=== PATIENT | female | born 1950 | race Caucasian/White ===

== ENCOUNTER 2018-06-24 07:37 | Outpatient (CLI) | payer MEDICARE, OTHER ==
[2018-06-24 17:34] LABS: #Basophils 0.1 thou/uL (0.0-0.2); #Eosinphils 0.3 thou/uL (0.0-0.7); #Lymphocytes 3.5 thou/uL (1.20-3.40); #Monocytes 0.5 thou/uL (0.11-0.59); #Neutrophils 3.7 thou/uL (1.40-6.50); %Basophils 1.5 % (0.0-1.0); %Eosinophils 3.6 % (0.0-10.0); %Lymphocytes 42.9 % (21.0-51.0); Hemoglobin 13.1 g/dL (12.0-16.0); Mean Corpuscular HGB CONC 33.9 g/dL (32.0-36.0); Mean Corpuscular Hemoglobin 30.1 pg (27.0-31.0); Mean Corpuscular Volume 88.8 fL (78.0-98.0); Mean Platelet Volume 7.2 fL (7.4-10.4); Platelet Count 322 thou/uL (130-400); RBC Distribution Width 12.5 % (11.5-14.5); Red Blood Cell (RBC) Count 4.34 mill/uL (4.20-5.40)
[2018-06-24 17:56] LABS: Anion Gap 11 mmol/L (10-20); BUN (Urea Nitrogen) 20 mg/dL (9.8-20.1); Calc. Creatinine Clearance 0 mL/min (70-130); Calcium 9.4 mg/dL (7.8-10.44); Carbon Dioxide 26 mmol/L (23-31); Chloride 107 mmol/L (98-107); Estimated GFR-MDRD 53; Glucose 88 mg/dL (80-115); Potassium 4.5 mmol/L (3.5-5.1); Sodium 139 mmol/L (136-145)
--- NOTE | 2018-06-26 20:52 | EKG ---
Test Reason : Blood Pressure : / mmHG Vent. Rate : 071 BPM Atrial Rate : 071 BPM P-R Int : 148 ms QRS Dur : 094 ms QT Int : 422 ms P-R-T Axes : 066 038 044 degrees QTc Int : 458 ms Sinus rhythm with occasional Premature ventricular complexes Incomplete right bundle branch block Anteroseptal infarct (cited on or before 08-JUL-2016) Abnormal ECG When compared with ECG of 08-JUL-2016 08:56, Premature ventricular complexes are now Present Questionable change in initial forces of Anteroseptal leads Confirmed by Radha JIMNEEZ ([id number]) on 06/26/2018 8:51:39 PM Referred By: CLEVE Confirmed By:Radha JIMENEZ
== END 2018-06-24 07:38 | disposition home or self-care (01) ==
LOC: LABBT 07:37
PROVIDERS: ATTEND Surgery
DX: Z01.818 Encounter for other preprocedural examination (principal); K43.9 Ventral hernia without obstruction or gangrene
CPT/HCPCS: 80048; 85025; 93005; 93010

== ENCOUNTER 2018-07-09 05:47 | Day surgery (SDC) | payer MEDICARE, OTHER ==
[2018-07-09] MEDS ORDERED: CEFAZOLIN 2 GM/50 ML BAG ONE (05:59)
[2018-07-09] MEDS ORDERED: Bupivacaine HCl 0.25%/Epi 0.0005/PF 10 ML VIAL FS ONE (06:39)
[2018-07-09] MEDS ORDERED: Fentanyl 250 MCG/5 ML VIAL ONE (06:53)
[2018-07-09] MEDS ORDERED: Fentanyl 100 MCG/2 ML VIAL ONE (08:54)
[2018-07-09] MEDS ORDERED: Ketorolac Tromethamine 30 MG/ML VIAL ONE (09:08)
--- NOTE | 2018-07-09 09:47 | OP ---
DATE OF PROCEDURE: 07/09/2018 PREOPERATIVE DIAGNOSIS: Ventral hernia. POSTOPERATIVE DIAGNOSIS: Ventral hernia. PROCEDURE PERFORMED: Laparoscopic robotic ventral hernia repair with mesh, [address] ANESTHESIA: General. ESTIMATED BLOOD LOSS: Minimal. COMPLICATIONS: None. SPECIMEN: None. DESCRIPTION OF PROCEDURE: The patient was taken to the operating room and laid supine on the operating room table. After general anesthetic was obtained, a Dawson was placed. The abdomen was shaved, prepped, and draped in a sterile fashion. Left subcostal 5 mm Optiview trocar was placed in usual fashion without injury and high-flow pneumoperitoneum was obtained. Left and right upper abdominal 8 mm robotic assist ports were placed. The 5 mm port switched out to 11 mm balloon port. All ports were docked to the robot. Surgeon goes to the console. The adhesions were taken down from the posterior abdominal wall. The omental fat was reduced. The peritoneum was taken down exposing the posterior fascia. [address] mesh was cut, marked, and placed in the abdomen as was a 2-0 V-Loc and an 0 V-Loc. 0 V-Loc was used to close the fascial defect. There was a second small defect just beside that. An 8 cm mesh was then held up against the posterior fascia using the needle from the 0 V-Loc. The nonadherent area was placed down against the abdominal viscera. The exposed mesh site was placed up against the fascia. 2-0 V-Loc was used to sew the mesh circumferentially along the edge to the posterior fascia. All needles were removed from the abdomen. All port sites were infiltrated using local anesthetic. All ports were removed under direct visualization without bleeding. There was no injury to any intraabdominal structures. All port sites were closed using 4-0 Monocryl and Dermabond. The patient was sent to Recovery in stable condition. All instrument counts, needle counts, and lap counts are correct. Job ID: [id number]
[2018-07-09] MEDS ORDERED: HYDROcodone/Acetaminophen 5/325 mg Tablet ONE (11:08)
[2018-07-09] MEDS ORDERED: PROPOFOL 200 MG/20 ML VIAL ONE (15:50)
[2018-07-09] MEDS ORDERED: Glycopyrrolate 0.2 MG/ML 5 ML SYRINGE ONE (15:50)
[2018-07-09] MEDS ORDERED: PHENYLEPHRINE-NS 100 MCG/ML 10 ML SYRINGE ONE (15:50)
[2018-07-09] MEDS ORDERED: Succinylcholine Chloride 20 MG/ML 10 ml SYRINGE FS ONE (15:50)
[2018-07-09] MEDS ORDERED: Rocuronium Bromide 10 MG/ML (10ML VIAL) ONE (15:50)
[2018-07-09] MEDS ORDERED: Lidocaine 1% PF 5 ML VIAL ONE (15:50)
[2018-07-09] MEDS ORDERED: ePHEDrine 50 MG/ML VIAL ONE (15:50)
== END 2018-07-09 11:50 | disposition home or self-care (01) ==
LOC: SDC 05:47
PROVIDERS: ATTEND Surgery
PROC: 0WUF4JZ Supplement Abdominal Wall with Synthetic Substitute, Percutaneous Endoscopic Approach (ICD-10-PCS; principal; 2018-07-09)
DX: K43.9 Ventral hernia without obstruction or gangrene (principal); I10 Essential (primary) hypertension; Z79.1 Long term (current) use of non-steroidal anti-inflammatories (NSAID); Z79.899 Other long term (current) drug therapy
CPT/HCPCS: 49652; C1781; J0131; J1885; J3010

== ENCOUNTER 2022-04-17 12:11 | Outpatient (CLI) | payer MEDICARE, OTHER | END 2022-04-17 12:12 | disposition home or self-care (01) | LOC: RAD 12:11 | PROVIDERS: ATTEND Surgery | DX: K21.9 Gastro-esophageal reflux disease without esophagitis (principal); K22.89 Other specified disease of esophagus | CPT/HCPCS: 74220 ==

== ENCOUNTER 2022-06-19 07:39 | Inpatient (IN) | payer MEDICARE, OTHER ==
[2022-06-24 13:44] VITALS: BMI 35.0
[2022-06-25] MEDS ORDERED: fentaNYL PF 100 MCG/2 ML SYRINGE ONE (06:20)
[2022-06-25] MEDS ORDERED: Ketamine 50 MG/ML (10ML VIAL) ONE (06:20)
[2022-06-25] MEDS ORDERED: SUGAMMADEX SODIUM 200 MG/2 ML VIAL ONE (06:21)
[2022-06-25] MEDS ORDERED: Dexmedetomidine 200 MCG/2 ML VIAL ONE (06:21)
[2022-06-25 07:20] LABS: SARS-CoV-2 NAA Rapid Test Not Detected (NotDetected)
[2022-06-25] MEDS ORDERED: PROPOFOL 200 MG/20 ML VIAL ONE (07:45)
[2022-06-25] MEDS ORDERED: Ondansetron PF 4 MG/2 ML Vial ONE (07:45)
[2022-06-25] MEDS ORDERED: Lidocaine 1% PF 5 ML VIAL ONE (07:45)
[2022-06-25] MEDS ORDERED: CEFAZOLIN 2 GM VIAL ONE (07:45)
[2022-06-25] MEDS ORDERED: Dexamethasone 20 MG/5 ML VIAL ONE (07:45)
[2022-06-25] MEDS ORDERED: Rocuronium Bromide 10 MG/ML (10ML VIAL) ONE (07:45)
[2022-06-25] MEDS ORDERED: Glycopyrrolate 0.2 MG/ML 5 ML SYRINGE ONE (07:45)
[2022-06-25] MEDS ORDERED: NEOSTIGMINE 3 MG/3 ML SYR 3 MG/3 ML SYRINGE ONE (07:45)
[2022-06-25] MEDS ORDERED: Sodium Chloride 0.9% 100 ML ONE (07:45)
[2022-06-25] MEDS ORDERED: Bupivacaine/Epinephrine 0.25% 30 ML VIAL ONE (08:08)
[2022-06-25] MEDS ORDERED: FENTANYL 500 MCG/10 ML VIAL 2,000 MCG in Sodium Chloride 0.9% 60 ML IV PRN (10:26)
[2022-06-25] MEDS ORDERED: Naloxone HCl 0.4 mg/ml Vial IV PRN (10:26)
[2022-06-25] MEDS ORDERED: diphenhydrAMINE 50 MG/ML VIAL IM PRN (10:26)
[2022-06-25] MEDS ORDERED: Promethazine HCl 25 MG/ML VIAL IM PRN ×3 (10:26→11:18)
[2022-06-25] MEDS ORDERED: diphenhydrAMINE 50 MG/ML VIAL IVP PRN ×2 (10:26→11:18)
[2022-06-25] MEDS ORDERED: Ondansetron HCl/PF 4 MG/2 ML Vial IVP PRN (10:26)
[2022-06-25] MEDS ORDERED: Ondansetron PF 4 MG/2 ML Vial IVP PRN ×2 (10:26→11:18)
[2022-06-25] MEDS ORDERED: diphenhydrAMINE 25 MG CAP PO PRN (10:26)
[2022-06-25] MEDS ORDERED: Communication Order-Pharmacy FS SCH (10:30)
[2022-06-25] MEDS ORDERED: Hydrocodone-Acetamin 15 ML UDCUP PO PRN (11:18)
[2022-06-25] MEDS ORDERED: Ipratropium/Albuterol 3 ML NEB NEB PRN (11:18)
[2022-06-25] MEDS ORDERED: Dextrose 50% Abboject 50 ML SYRINGE SLOW IVP PRN (11:18)
[2022-06-25] MEDS ORDERED: hydrALAZINE 20 MG/ML VIAL SLOW IVP PRN (11:18)
[2022-06-25] MEDS ORDERED: Dextrose 5% in Water 1,000 ML IV PRN (11:18)
[2022-06-25] MEDS ORDERED: Fentanyl 100 MCG/2 ML VIAL ONE (11:27)
[2022-06-25] MEDS ORDERED: D5 1/2 NS w/20 mEq KCL 1,000 ML ONE (12:01)
[2022-06-25] MEDS: D5 1/2 NS w/20 mEq KCL 1,000 ML IV SCH ×2 (12:30→21:39)
[2022-06-25] MEDS ORDERED: Ketorolac Tromethamine 30 MG/ML VIAL IVP SCH (18:15)
[2022-06-25] MEDS: Acetaminophen 650 MG/20.3 ML UDCUP PO PRN (21:48)
[2022-06-25] MEDS: Senokot S 8.6-50 MG TAB PO SCH (21:49)
[2022-06-26] MEDS: Acetaminophen 650 MG/20.3 ML UDCUP PO PRN (05:25)
[2022-06-26] MEDS: D5 1/2 NS w/20 mEq KCL 1,000 ML IV SCH ×2 (06:25→16:23)
[2022-06-26 07:47] LABS: #Eosinphils 0.1 thou/uL (0.0-0.7); #Lymphocytes 2.3 thou/uL (1.20-3.40); #Monocytes 0.7 thou/uL (0.11-0.59); #Neutrophils 6.8 thou/uL (1.40-6.50); %Basophils 0.3 % (0.0-1.0); %Eosinophils 1.2 % (0.0-10.0); %Lymphocytes 23.2 % (21.0-51.0); %Monocytes 6.8 % (0.0-10.0); %Neutrophils 68.6 % (42.0-75.0); Hemoglobin 11.7 g/dL (12.0-16.0); Mean Corpuscular HGB CONC 33.1 g/dL (32.0-36.0); Mean Corpuscular Volume 93.6 fl (78.0-98.0); Mean Platelet Volume 7.3 fL (7.4-10.4); Platelet Count 221 10x3/uL (130-400); Red Blood Cell (RBC) Count 3.78 mill/uL (4.20-5.40); White Blood Cell (WBC) Count 9.9 10x3/uL (4.8-10.8)
[2022-06-26 08:08] LABS: Anion Gap 10 mmol/L (10-20); BUN (Urea Nitrogen) 17 mg/dL (9.8-20.1); Calc. Creatinine Clearance 73 mL/min (70-130); Carbon Dioxide 24 mmol/L (23-31); Chloride 105 mmol/L (98-107); Estimated GFR 61; Glucose 95 mg/dL (83-110); Potassium 4.5 mmol/L (3.5-5.1); Sodium 134 mmol/L (136-145)
[2022-06-26] MEDS: Senokot S 8.6-50 MG TAB PO SCH ×2 (08:18→20:39)
[2022-06-26] MEDS: Pantoprazole 40 MG VIAL IVP SCH (08:18)
[2022-06-26] MEDS: Hydrocodone-Acetamin 15 ML UDCUP PO PRN ×3 (09:28→22:58)
[2022-06-26] MEDS ORDERED: Aspirin/APAP/Caffeine Tab (Excedrin Migraine) PO PRN (11:10)
[2022-06-27] MEDS: D5 1/2 NS w/20 mEq KCL 1,000 ML IV SCH (03:10)
[2022-06-27] MEDS: Senokot S 8.6-50 MG TAB PO SCH (08:26)
[2022-06-27] MEDS: Pantoprazole 40 MG VIAL IVP SCH (08:29)
[2022-06-27] MEDS: Hydrocodone-Acetamin 15 ML UDCUP PO PRN (11:02)
[2022-06-27 11:04] VITALS: BP 164/78; TEMP 97.5
== END 2022-06-27 11:35 | disposition home or self-care (01) | DRG 327 ==
LOC: SURG A 06-25 05:57 → SJJU 06-25 15:54
PROVIDERS: ADMIT Surgery; ATTEND Surgery
PROC: 0BQT4ZZ Repair Diaphragm, Percutaneous Endoscopic Approach (ICD-10-PCS; principal; 2022-06-25)
PROC: 0D164ZA Bypass Stomach to Jejunum, Percutaneous Endoscopic Approach (ICD-10-PCS; 2022-06-25)
PROC: 8E0W4CZ Robotic Assisted Procedure of Trunk Region, Percutaneous Endoscopic Approach (ICD-10-PCS; 2022-06-25)
DX: K44.9 Diaphragmatic hernia without obstruction or gangrene (principal); K31.1 Adult hypertrophic pyloric stenosis; K21.9 Gastro-esophageal reflux disease without esophagitis; Z20.822 Contact with and (suspected) exposure to COVID-19
CPT/HCPCS: 80048; 85025; C9113; J1100; J1650; J1885; J2405; J2704; J3010; J3480; J3490; U0002

== ENCOUNTER 2022-06-19 10:51 | Outpatient (CLI) | payer MEDICARE, OTHER ==
[2022-06-19 13:36] LABS: #Basophils 0.1 10x3/uL (0.0-0.2); #Eosinphils 0.1 10x3/uL (0.0-0.5); #Monocytes 0.3 10x3/uL (0.0-1.1); #Neutrophils 4.5 10x3/uL (1.5-8.4); %Basophils 0.8 % (0.0-2.0); %Eosinophils 1.5 % (0.0-6.0); %Lymphocytes 30.8 % (18.0-47.0); %Monocytes 4.4 % (0.0-10.0); %Neutrophils 62.2 % (40.0-75.0); Hemoglobin 13.1 g/dL (12.0-15.5); Mean Corpuscular HGB CONC 32.6 g/dL (32.0-36.0); Mean Corpuscular Hemoglobin 30.2 pg (27.0-33.0); Mean Corpuscular Volume 92.6 fl (81.6-98.3); Mean Platelet Volume 9.8 fl (7.4-10.4); Platelet Count 312 10x3/uL (150-450); RBC Distribution Width 13.4 % (11.5-14.5); Red Blood Cell (RBC) Count 4.34 10x6/uL (3.90-5.03); White Blood Cell (WBC) Count 7.3 10x3/uL (3.5-10.5)
[2022-06-19 13:51] LABS: Anion Gap 12 mmol/L (10-20); BUN (Urea Nitrogen) 20 mg/dL (9.8-20.1); Calc. Creatinine Clearance 0 mL/min (70-130); Calcium 9.3 mg/dL (7.8-10.44); Carbon Dioxide 24 mmol/L (23-31); Chloride 109 mmol/L (98-107); Estimated GFR 56; Glucose 87 mg/dL (83-110); Potassium 4.8 mmol/L (3.5-5.1); Sodium 140 mmol/L (136-145)
== END 2022-06-19 10:52 | disposition home or self-care (01) ==
LOC: LABBT 10:51
PROVIDERS: ATTEND Surgery
DX: Z01.818 Encounter for other preprocedural examination (principal); K44.9 Diaphragmatic hernia without obstruction or gangrene; K31.1 Adult hypertrophic pyloric stenosis
CPT/HCPCS: 80048; 85025; 93005; 93010